=== PATIENT | female | born 1980 | race Caucasian/White ===

== ENCOUNTER 2016-07-02 22:35 | Emergency (ER) | payer OTHER ==
[2016-07-02] MEDS ORDERED: ONDANSETRON HCL/PF 4 MG/ 2ML VIAL IVP ONE (23:03)
[2016-07-02] MEDS ORDERED: HALOPERIDOL LACTATE 5 MG/ML VIAL IM ONE (23:03)
[2016-07-02] MEDS ORDERED: 0.9 % SODIUM CHLORIDE 1,000 ML IV ONE (23:03)
[2016-07-02] MEDS ORDERED: KETOROLAC TROMETHAMINE 30 MG/1ML VIAL IVP ONE (23:03)
--- NOTE | 2016-07-03 00:28 | ED Physician Documentation ---
Headache - HISTORIAN Historian: patient - HPI Stated Complaint: MIGRAINE, LEFT EAR PAIN Chief Complaint: Headache Additional Information: migraine, left sided Onset: hours (8) Timing: abrupt Exposure To: none Severity: moderate Quality: similar to previous, throbbing Associated Symptoms: sensitivity to light, nausea, vomiting Exacerbated By: light, noise Further Comments: no - ROS NEURO/PSYCH: denies: confusion, anxiety, depression, fainting EYES/ENT: denies: sore throat, difficulty swallowing, sinus pain, drainage CVS/RESP: denies: none, chest pain, shortness of breath, cough GI/: denies: abdominal pain, diarrhea, problems urinating, incontinence MS/SKIN/LYMPH: denies: muscle aches, back pain, rash, skin lesions, swollen glands all systems neg except as marked: Yes - PAST HX Medical History: other (depression, hypothyroidism, hyperlipidemia, migraine cephalgia) Surgical History: other (hyst, ortho) Immunizations: referred to PCP Allergies/Adverse Reactions: Allergies Allergy/AdvReac Type Severity Reaction Status Date / Time latex [Latex] Allergy Severe Hives Verified 07/02/16 22:44 Home Medications: Ambulatory Orders Medication Instructions Recorded Bupropion HCl [Wellbutrin Sr] 150 mg PO BID 12/06/12 Estradiol Micronized [Estradiol] 25 gm PO DAILY 12/06/12 PARoxetine HCL [Paxil] 20 mg PO QD 12/06/12 Levothyroxine Sodium [Synthroid] 75 mcg PO QDAY 07/02/16 - SOCIAL HX Smoking History: cigarettes Alcohol Use: none Drug Use: none - Family HX Family History: none - VITAL SIGNS Vital Signs: Vital Signs Temp Pulse Resp BP Pulse Ox 71 16 126/74 95 07/02/16 22:35 07/02/16 22:35 07/02/16 22:35 07/02/16 22:35 - REVIEWED ASSESSMENTS Nursing Assessment Reviewed: No Vitals Reviewed: No Progress - Results/Orders Results/Orders: no testing ordered - Progress Progress: pt. given 1 liter ns, 30 mg toradol, 8 mg zofran iv, 10 mg haldol im in er Critical Care Note - Critical Care Note Total Time (mins): 0 ED Results Lab/Radiology - Lab Results Lab Results: none ordered - Radiology Radiology Impressions: none ordered - Orders Orders: ED Orders Category Date Time Status Place Saline Lock/IV Now Care 07/02/16 23:03 Active 0.9 % Sodium Chloride [Normal Saline] 1,000 ml Med 07/02/16 23:03 Discontinued IV Q1H Haloperidol Lactate [Haldol] Med 07/02/16 23:03 Discontinued 10 mg IM NOW ONE Ketorolac Tromethamine [Toradol] Med 07/02/16 23:03 Discontinued 30 mg IVP NOW ONE Ondansetron HCl/Pf [Zofran 4 mg/2 ml] Med 07/02/16 23:03 Discontinued 8 mg IVP NOW ONE Headache Physical Exam - EXAM General Appearance: moderate distress EENT: no facial swelling, eyes nml inspection, PERRL. No: pain over sinuses Neck: normal inspection, thyroid normal, supple Respiratory: no resp distress, chest non-tender, breath sounds normal CVS: reg. rate & rhythm, heart sounds nml Abdomen: non-tender, no organomegaly, nml bowel sounds, no distention Skin: color nml, no rash Extremitites: non-tender, normal range of motion, no evidence of injury - NEURO/PSYCH Higher Functions: alert, oriented x3, nml speech, mood/affect nml Cranial: nml as tested, no evidence of acute CVA. denies: facial droop, hearing deficit, tongue deviation to right, tongue deviation to left Cerebellar: nml as tested, abnml Romberg test Sensorimotor: motor nml, sensation nml Discharge Clincal Impression: Migraine Qualifiers: Migraine type: unspecified Status migrainosus presence: without status migrainosus Intractability: intractable Qualified Code(s): G43.919 - Migraine, unspecified, intractable, without status migrainosus Home Medications: Ambulatory Orders Bupropion HCl [Wellbutrin Sr] 150 mg PO BID 12/06/12 Estradiol Micronized [Estradiol] 25 gm PO DAILY 12/06/12 PARoxetine HCL [Paxil] 20 mg PO QD 12/06/12 Levothyroxine Sodium [Synthroid] 75 mcg PO QDAY 07/02/16 Comments: discharged to care of father in stable and improved condition with script for Fioricet 1 pill 4x/day as needed for headache Condition: Stable Disposition: 01 HOME, SELF-CARE Decision to Admit: NO Decision Time: 00:30
[2016-07-03 01:15] VITALS: BP 125/83
== END 2016-07-03 00:30 | disposition home or self-care (01) ==
LOC: ED 22:35
DX: G43.919 Migraine, unspecified, intractable, without status migrainosus (principal)
CPT/HCPCS: J1630; J1885; J2405; J7030; 96361; 96372; 96374; 96375; 99283; 99284; S1016